=== PATIENT | female | born 1950 | race Caucasian/White ===

== ENCOUNTER 2017-08-17 04:22 | Inpatient (IN) | payer MEDICARE, MEDICAID ==
[~2017-08-17] VITALS: Ht 170.2 cm; Wt 93.4 kg
[~2017-08-17 04:22] MED LIST: ABILIFY20 MG; ALEVE220 MG PO; ASPIRIN EC81 M1 PO; ASPIRIN325 PO; ATORVASTATIN CA20 MG PO; BACTRIM DS TAB1 EACH PO; CELEXA10 MG PO; CLONAZEPAM; CLONAZEPAM 0.50.5 M1 PO; CLONAZEPAM 1 MG1 M1 PO; COMBIVENT RESPIM4 GM IH; EFFER-K 20 MEQ20 ME1 PO; FENTANYL 1100 MCG/HR; FENTANYL 1100 MCG/HR TP; FENTANYL PATCH75 MCG TRANSDERM; FLONASE 0.05%50 MCG NASAL; FOLIC ACID1 MG PO; HYDROCODON-ACE1 EAC8; HYDROCODONE-APA1 TA1 PO; IBUPROFEN 200200 M1 PO; LASIX 20 MG TAB20 MG PO; LEVAQUIN 500 M500 M2 PO; LIDODERM 5%1 PATC1 TRANSDERM; MULTIVITAMINS PO; MULTIVITAMINS1 EAC7; MULTIVITAMINS1 EAC7 PO; NORCO 10-325 T1 EACH PO; NORCO 5-325 TA1 EACH PO; NUCYNTA50 MG PO; OMEPRAZOLE40 MG PO; ONDANSETRON HCL4 M2 PO; OXYBUTYNIN 5 MG5 M2 PO; OXYCODONE HCL 55 MG PO; OXYCODONE HCL15 MG PO; PERCOCET 10-321 EAC1 PO; PERCOCET 10-321 EACH PO; PERCOCET 5-3251 EACH PO; PERCOCET 7.5-31 EACH PO; PERCOCET PO; PROAIR HFA8.5 GM; PROAIR HFA8.5 GM INH; TRINATE TABLET1 TAB PO; VITAMIN B-1100 M1 PO; VITAMIN D1000 UNI1 PO; XANAX 0.5 MG0.5 MG PO; ZANAFLEX4 MG PO; ZANTAC 150MG T150 MG PO; ZOCOR20 MG PO
[2017-08-17 04:25] VITALS: BP 135/63
[2017-08-17 05:32] LABS: ABSOLUTE EOSINOPHILS 0.1 thou/uL (0.0-0.7); ABSOLUTE LYMPHOCYTES 2.1 thou/uL (0.8-5.3); ABSOLUTE MONOCYTES 0.6 thou/uL (0.0-1.2); ABSOLUTE NEUTROPHILS 4.9 thou/uL (1.6-8.1); BASOPHILS 0.4 %; EOSINOPHILS 0.8 %; HEMATOCRIT 34.9 % (37.0-47.0); HEMOGLOBIN 11.8 gm/dL (12.0-15.0); LYMPHOCYTES 27.1 %; MCH 33.3 pg (26.0-34.0); MCHC 33.8 g/dL (28.0-37.0); MCV 98.3 fL (80.0-100.0); MONOCYTES 8.3 %; MPV 7.3 fl. (7.2-11.1); NUCLEATED RBCS 0 /100WBC; PLATELET COUNT* 130 thou/uL (150-400); POLYS 63.4 %; RBC 3.55 mil/uL (4.20-5.00); RDW-CV 18.9 % (10.5-14.5); WBC 7.8 thou/uL (4.0-11.0)
[2017-08-17 06:00] LABS: CALCIUM 8.4 mg/dL (8.5-10.1); CREATININE 0.8 mg/dL (0.6-1.3)
[2017-08-17 06:02] LABS: POTASSIUM 2.1 mmol/L (3.5-5.1)
[2017-08-17 06:03] LABS: ALBUMIN 3.4 g/dL (3.4-5.0); TOTAL BILIRUBIN 0.7 mg/dL (<0.1-1.0); TOTAL PROTEIN 7.4 g/dL (6.4-8.2)
[2017-08-17 08:22] VITALS: BP 124/86
[2017-08-17 08:44] VITALS: BP 126/75
[2017-08-17 11:30] VITALS: BP 135/69
[2017-08-17 13:15] LABS: CALCIUM 7.7 mg/dL (8.5-10.1); CREATININE 1.1 mg/dL (0.6-1.3)
[2017-08-17 13:18] LABS: POTASSIUM 2.6 mmol/L (3.5-5.1)
[2017-08-17 13:56] LABS: URINE BILIRUBIN NEGATIVE (Negative); URINE BLOOD TRACE (Negative); URINE CLARITY CLEAR; URINE COLOR YELLOW; URINE GLUCOSE-RANDOM NEGATIVE (Negative); URINE KETONES NEGATIVE (Negative); URINE NITRITE-REFLEX NEGATIVE (Negative); URINE PROTEIN 2+ (Negative); URINE UROBILINOGEN 0.2 E.U./dl (0.2-1.0)
[2017-08-17 14:01] LABS: URINE LEUKOCYTES-REFLEX 3+ (Negative)
[2017-08-17 14:12] LABS: BACTERIA-REFLEX >30 Many /HPF (None Seen); CRYSTALS None Seen /LPF (None Seen); URINE WBC-REFLEX >25 Many /HPF (0-5)
[2017-08-17 14:13] LABS: CASTS None Seen /LPF (None Seen); MUCUS >6 Heavy strn/LPF (None Seen); SQUAMOUS >10 Many /LPF (0-3)
[2017-08-17 15:30] VITALS: BP 70/39
--- NOTE | 2017-08-17 15:46 | EKG ---
[place] [address] ELECTROCARDIOGRAM REPORT Name: LEAH SAGASTUME Room: [address] ADM IN .R.#: [id number] Admission: 08/17/17 Attend Phys: Rajendra Rinaldi, Discharge: Date of : 52 Report #: [id number] THIS REPORT FOR: //name// [facility] ED Test Date: 2017-08-17 Test Time: 04:36:48 Pat Name: LEAH SAGASTUME Department: Room: [facility] Gender: F Solder Making Supervisor: MARCUS Newman : 1950 Requested By: Reba Parra Order Number: [id number] MD: Eulalio Rankin Measurements Intervals [place] Rate: 92 P: 6 AR: 160 QRS: 56 QRSD: 100 T: 42 QT: 411 QTc: 509 Interpretive Statements Sinus rhythm Low voltage, extremity and precordial leads Prolonged QT interval Compared to ECG 03/03/2017 19:50:58 Low QRS voltage now present Prolonged QT interval now present Sinus tachycardia no longer present Electronically Signed On 08-17-2017 15:46:32 PRINTING PLATE MAKER by Eulalio Rankin [email or web address] <ELECTRONICALLY SIGNED> By: Eulalio Rankin MD, FACC 08/17/17 1546 [id number] [id number] Eulalio Rankin MD, FAC /EPI
[2017-08-17 20:00] VITALS: BP 75/54
[2017-08-18] VITALS (10 sets, daily range): BP systolic 70–125; BP diastolic 39–70
[2017-08-18 00:07] LABS: HEMOGLOBIN 9.7 gm/dL (12.0-15.0); MCH 34.2 pg (26.0-34.0); MCHC 33.4 g/dL (28.0-37.0); MCV 102.2 fL (80.0-100.0); MPV 7.1 fl. (7.2-11.1); RBC 2.84 mil/uL (4.20-5.00); RDW-CV 19.3 % (10.5-14.5); WBC 7.2 thou/uL (4.0-11.0)
[2017-08-18 00:11] LABS: CALCIUM 7.7 mg/dL (8.5-10.1); CREATININE 1.8 mg/dL (0.6-1.3); MAGNESIUM 3.3 mg/dL (1.8-2.4)
[2017-08-18 04:55] LABS: CALCIUM 7.4 mg/dL (8.5-10.1); CREATININE 1.7 mg/dL (0.6-1.3); MAGNESIUM 2.7 mg/dL (1.8-2.4); TOTAL BILIRUBIN 0.7 mg/dL (<0.1-1.0); TOTAL PROTEIN 6.5 g/dL (6.4-8.2)
[2017-08-18 04:56] LABS: HEMATOCRIT 29.8 % (37.0-47.0); HEMOGLOBIN 9.9 gm/dL (12.0-15.0); MCH 33.6 pg (26.0-34.0); MCHC 33.1 g/dL (28.0-37.0); MCV 101.6 fL (80.0-100.0); MPV 6.9 fl. (7.2-11.1); RBC 2.94 mil/uL (4.20-5.00); RDW-CV 19.7 % (10.5-14.5); WBC 8.1 thou/uL (4.0-11.0)
[2017-08-18 05:37] LABS: POTASSIUM 2.8 mmol/L (3.5-5.1)
[2017-08-18 11:41] LABS: HEMATOCRIT 28.8 % (37.0-47.0); HEMOGLOBIN 9.6 gm/dL (12.0-15.0)
[2017-08-18 23:25] LABS: INFLUENZA A ANTIGEN None Detected (None Detect); INFLUENZA B ANTIGEN None Detected (None Detect)
[2017-08-19] VITALS (12 sets, daily range): BP systolic 88–137; BP diastolic 54–79
[2017-08-19 05:09] LABS: HEMATOCRIT 28.5 % (37.0-47.0); HEMOGLOBIN 9.5 gm/dL (12.0-15.0); MCH 34.6 pg (26.0-34.0); MCHC 33.3 g/dL (28.0-37.0); MCV 103.9 fL (80.0-100.0); MPV 7.1 fl. (7.2-11.1); RBC 2.74 mil/uL (4.20-5.00); RDW-CV 20.3 % (10.5-14.5); WBC 9.2 thou/uL (4.0-11.0)
[2017-08-19 05:15] LABS: CALCIUM 7.3 mg/dL (8.5-10.1); CREATININE 0.9 mg/dL (0.6-1.3); MAGNESIUM 2.1 mg/dL (1.8-2.4); POTASSIUM 3.5 mmol/L (3.5-5.1)
[2017-08-20 04:00] VITALS: BP 136/54
[2017-08-20 04:44] LABS: HEMOGLOBIN 9.4 gm/dL (12.0-15.0); MCH 34.4 pg (26.0-34.0); MCHC 33.6 g/dL (28.0-37.0); MCV 102.3 fL (80.0-100.0); MPV 7.4 fl. (7.2-11.1); RBC 2.74 mil/uL (4.20-5.00); WBC 7.7 thou/uL (4.0-11.0)
[2017-08-20 05:13] LABS: ALBUMIN 2.7 g/dL (3.4-5.0); CALCIUM 7.6 mg/dL (8.5-10.1); CREATININE 0.8 mg/dL (0.6-1.3); POTASSIUM 3.3 mmol/L (3.5-5.1); TOTAL BILIRUBIN 0.7 mg/dL (<0.1-1.0); TOTAL PROTEIN 5.9 g/dL (6.4-8.2)
[2017-08-20 08:00] VITALS: BP 111/62
[2017-08-20 16:08] VITALS: BP 116/60
[2017-08-20 20:00] VITALS: BP 142/84
[2017-08-21] VITALS: BP 158/78
[2017-08-21 04:00] VITALS: BP 144/86
[2017-08-21 04:20] LABS: HEMATOCRIT 28.2 % (37.0-47.0); HEMOGLOBIN 9.4 gm/dL (12.0-15.0); MCH 33.8 pg (26.0-34.0); MCHC 33.5 g/dL (28.0-37.0); MCV 100.9 fL (80.0-100.0); MPV 6.9 fl. (7.2-11.1); RBC 2.79 mil/uL (4.20-5.00); RDW-CV 20.3 % (10.5-14.5); WBC 5.7 thou/uL (4.0-11.0)
[2017-08-21 04:28] LABS: CALCIUM 7.7 mg/dL (8.5-10.1); CREATININE 0.7 mg/dL (0.6-1.3); MAGNESIUM 1.4 mg/dL (1.8-2.4); POTASSIUM 3.8 mmol/L (3.5-5.1)
[2017-08-21 08:05] VITALS: BP 147/81
[2017-08-21 11:42] VITALS: BP 143/79
[2017-08-21 15:47] VITALS: BP 111/61
[2017-08-21 20:00] VITALS: BP 137/97
[2017-08-22] VITALS: BP 157/77
[2017-08-22 04:00] VITALS: BP 157/72
[2017-08-22 08:00] VITALS: BP 146/80
[2017-08-22 12:07] VITALS: BP 155/82
[2017-08-22 20:00] VITALS: BP 152/62
[2017-08-23] VITALS (7 sets, daily range): BP systolic 117–143; BP diastolic 58–76
[2017-08-23] MEDS ORDERED: COLACE100 MG PO (10:42)
[2017-08-23] MEDS ORDERED: CIPRO500 MG PO (10:42)
[2017-08-23] MEDS ORDERED: MIRALAX17 GM PO (10:42)
[2017-08-23] MEDS ORDERED: OXYCODONE HCL 55 MG PO (11:35)
[2017-08-23] MEDS ORDERED: PERCOCET PO (11:35)
--- NOTE | 2017-08-25 10:26 | S ---
[place] [address] SURGICAL PATH RPT PROCEDURE Name: LEAH SAGASTUME Room: [address] IN .R.#: [id number] Admission: 08/17/17 Date of : 52 Discharge: 08/23/17 Report #: [id number] Path Case #: [id number] PATHOLOGY REPORT COLLECTION DATE: 08/20/2017 RECEIVED DATE: 08/24/2017 SUBMITTING PHYS: Dr. Rene Steen OTHER PHYS: Dr. Rajendra Rinaldi SPECIMEN(S) RECEIVED: A.Submucosa lesion of the duodenum B.Duodenum bx * * * * * * * * * * * * FINAL DIAGNOSIS: A. Submucosal lesion of the duodenum: - Minute fragment of fat consistent with submucosal lipoma and mild nonspecific active duodenitis with prominence of Jodi's glands, negative for granulomas and dysplasia/adenomatous change. See comment. B. Duodenum biopsy for duodenitis: - Moderate nonspecific active duodenitis, negative for granulomas and dysplasia/adenomatous change. (LISA:liu; 08/25/2017) COMMENT: A. Review of Dr. Steen's EGD procedure report dated 08/20/2017, reveals a 7 mm submucosal lesion in the second portion of the duodenum suspicious for lipoma. (LISA:liu; 08/25/2017) PATHOLOGIST: Tommy Gibson M.D. REPORT ELECTRONICALLY SIGNED BY: Tommy Gibson M.D. DATE/TIME: 08/25/2017 10:25 * * * * * * * * * * * * GROSS PATHOLOGY: A. Received in formalin labeled "Leah Sagastume, submucosal lesion of the duodenum," is a segment of cardenas soft tissue measuring 0.3 x 0.3 x 0.2 cm in maximum dimension. The specimen is submitted entirely in cassette A1. B. The specimen is received in formalin, labeled "Leah aSgastume, duodenum BX for duodenitis," and consists of 3 fragments of cardenas soft tissue measuring between 0.5 x 0.3 x 0.1 cm and 0.3 x 0.2 x 0.1 cm. They are entirely submitted in cassette A1. (SDY; 08/24/2017) [place] [address] SURGICAL PATH RPT PROCEDURE Name: LEAH SAGASTUME Room: [address]#: [id number] Admission: 08/17/17 Date of : 52 Discharge: 08/23/17 Report #: [id number] Path Case #: [id number] CLINICAL HISTORY: Submucosal lesion of the duodenum Duodenitis INITIAL CPT CODE(S): A; 49375 B; 23644 Professional services performed by [facility] at [address] [address] Technical services performed by [facility] at [address] [place] [address], [address], [place] [address]. [facility] [address] [address] PHONE: [phone] DIRECTOR: Tang Oquendo M.D. * * * END OF REPORT * * *
--- NOTE | 2017-08-31 16:26 | CON ---
[address] [address] CONSULTATION Name: TANIKALEAH Esthela Room: [address] IN .R.#: [id number] Admission: 08/17/17 Attend Phys: Rajendra Rinaldi, Discharge: 08/23/17 Date of : 52 Report #: [id number] THIS REPORT FOR: //name// CC: ARACELI physician/PCP Rajendra Rinaldi DATE OF SERVICE: 08/18/2017 ADDENDUM CONSULT NUMBER: [id number] I have personally seen and reviewed labs and imaging studies. The patient with history of EGD and colonoscopy 2 years ago at who presents with abnormal liver enzymes, history of alcoholism, recent fall with fracture of left humerus. The patient found to have heme-positive stool and her hemoglobin dropped from 11 to 9.9. She has history of peptic ulcer disease. We will go ahead and schedule her for an upper endoscopy. Meanwhile, we will obtain records from in reference to her colonoscopy. If her upper endoscopy was negative, we will consider a colonoscopy at that point. Note that the patient has hypokalemia, this should be corrected prior to the procedure. <ELECTRONICALLY SIGNED> By: Rene Steen MD 08/31/17 1626 1336 01Rene Steen MD /nt
--- NOTE | 2017-08-31 16:26 | CON ---
[address] [address] CONSULTATION Name: TANIKALEAH Esthela Room: [address]#: [id number] Admission: 08/17/17 Attend Phys: Rajendra Rinaldi, Discharge: 08/23/17 Date of : 52 Report #: [id number] THIS REPORT FOR: //name// CC: ARACELI physician/PCP Rajendra Rinaldi DICTATED BY: Johana Sánchez [facility] DATE OF SERVICE: 08/18/2017 The patient cannot recall who her PCP is. Please note at the time of this dictation, the patient was seen and physically examined by myself. REASON FOR CONSULTATION: Anemia and Hemoccult positive stool. HISTORY OF PRESENT ILLNESS: This is a 67-year-old female presented to the emergency room after having some left shoulder pain, which had been ongoing for about an hour after she had fallen and landed on her left shoulder while she was in the bathroom. The patient's alcohol level when she came in was 137 and she had been drinking. EMS that she was incontinent on the scene as well. The patient states prior to her admission, she did have what she considered like the GI flu, she had kind of upper respiratory where she had some head congestion, she had a lot of coughing, she had some nausea, vomiting and lot of diarrhea as well during this time period. She did not notice any bright red blood or any black noted stools. The patient states that she had an EGD and colonoscopy done a couple of years ago over at and from what she can recall everything was normal. She states her normal bowel habits go between constipation and diarrhea and will go back and forth. PAST MEDICAL HISTORY: Includes pneumonia, seizure disorder, hypercholesterolemia, history of alcohol abuse and frequent falls. PAST SURGICAL HISTORY: Back surgeries, she has had a hysterectomy, cholecystectomy, she has had her knees replaced times 2, she has had left shoulder surgery times 3, bilateral carpal tunnel, she had a stroke in November 2012, right elbow surgery, and history of rib fractures. ALLERGIES: TRAMADOL, CONTRAST DYE, and DARVOCET. MEDICATIONS FROM HOME: Atorvastatin, aspirin, and hydrocodone. FAMILY HISTORY: Noncontributory. SOCIAL HISTORY: Positive for tobacco use, half to a full pack [place] [address] CONSULTATION Name: LEAH SAGASTUME Room: [address]#: [id number] Admission: 08/17/17 Attend Phys: Rajendra Rinaldi, Discharge: 08/23/17 Date of : 52 Report #: [id number] use, she admits to 4 shots of vodka daily. Denies any recreational drug use. REVIEW OF SYSTEMS: Twelve-point review of systems is essentially negative except what is mentioned in the HPI. PHYSICAL EXAMINATION: VITAL SIGNS: Temperature 36.8, pulse 83, respirations 19, and blood pressure 125/66. HEART: Regular rate and rhythm. LUNGS: Diminished, but clear. ABDOMEN: Soft. Positive bowel sounds in all 4 quadrants with slightly hypoactive bowel sounds noted. EXTREMITIES: Her left upper extremity is in a splint at the present time. LABS: Hemoglobin on admission was 11.8, she is down to 9.6; hematocrit 29.8, white count is 8.1, and platelet is 108. Sodium 141, potassium is 2.8, chloride 101, CO2 of 30, BUN is 5, creatinine is 1.7, GFR is 30, and glucose is 104. Total bilirubin is 0.7, alk phos 319, ALT 50, and AST is 85. IMPRESSION: 1. Acute on chronic anemia. 2. Positive Hemoccult stool. 3. Thrombocytopenia. 4. Elevated LFTs. 5. Hypokalemia. 6. History of alcohol abuse. 7. Left humeral fracture. PLAN: 1. Stat H and H. 2. EGD and colonoscopy possibly on Wednesday with Dr. Steen. 3. Clear liquid diet tomorrow. 4. Obtain records from on her previous EGD and colonoscopies. 5. Ultrasound of her abdomen. 6. B12, folate, ferritin, iron and TIBC still pending. Thank you for allowing us to participate in this patient's care. Please do not hesitate to call with any questions in regard to this consult. <ELECTRONICALLY SIGNED> By: Rene Steen MD 08/31/17 1626 1154 1456Rene Steen MD /nt
--- NOTE | 2017-08-31 16:26 | PROC ---
[address] [address] PROCEDURE REPORT Name: LEAH SAGASTUME Room: [address] IN .#: [id number] Admission: 08/17/17 Attend Phys: Rajendra Rinaldi, Discharge: 08/23/17 Date of : 52 Report #: [id number] THIS REPORT FOR: //name// CC: ARACELI physician/PCP Rajendra Rinaldi DATE OF SERVICE: 08/20/2017 PROCEDURE PERFORMED: EGD with biopsy. INDICATION FOR PROCEDURE: Anemia and history of melanotic stool. MEDICATION GIVEN DURING THIS PROCEDURE: Include propofol administered by nail puller. PHYSICAL EXAMINATION: VITAL SIGNS: Reveals normal vitals. LUNGS: Clear. CARDIOVASCULAR: Regular. ABDOMEN: Large, soft, nontender, nondistended. Bowel sounds are positive. DESCRIPTION OF PROCEDURE: An informed consent was obtained from the patient including the nature, risks, benefits and alternatives described. The patient was placed in the left lateral decubitus position with oximetry, blood pressure and cardiac monitoring. IV sedation was titrated with medication to effect. The Ves[employer] video upper endoscope was then advanced under direct vision into the esophagus, there was grade A distal esophagitis. There was no evidence of esophagitis, rings, webs or strictures. No evidence for Rice's mucosa was noted. The stomach was then entered, insufflated and examined in its entirety and revealed a normal-appearing antrum and body as well as the cardia and fundus on retroflex examination. There was a small hiatal hernia. The pylorus was widely patent, revealing that there was duodenitis of the bulb, which was biopsied. There was also a 7 mm submucosal lesion in the second portion of the duodenum, which was suspicious for lipoma, but this was biopsied. Scope and air were then withdrawn, and the patient was sent to the recovery room in stable condition. Thank you for allowing me to participate in the care of this patient. IMPRESSION: 1. Grade B esophagitis. 2. Small hiatal hernia. 3. Duodenitis of the bulb, status post biopsy. 4. Submucosal lesion in the second portion of the duodenum, [place] [address] PROCEDURE REPORT Name: TANIKALEAH Esthela Room: [address]#: [id number] Admission: 08/17/17 Attend Phys: Rajendra Rinaldi, Discharge: 08/23/17 Date of : 52 Report #: [id number] RECOMMENDATION: Follow up biopsy results. We will have the patient on Protonix 40 mg daily. We will make further recommendation after her biopsy results are available. <ELECTRONICALLY SIGNED> By: Rene Steen MD 08/31/17 1626 1441 [id number] Steen MD /nt
--- NOTE | 2017-09-13 09:42 | CON ---
[address] [address] CONSULTATION Name: TANIKALEAH L Room: [address]#: [id number] Admission: 08/17/17 Attend Phys: Rajendra Rinaldi, Discharge: 08/23/17 Date of : 52 Report #: [id number] THIS REPORT FOR: //name// CC: ARACELI physician/PCP Rajendra Rinaldi DICTATED BY: Shay Loco DO DATE OF SERVICE: 08/17/2017 CHIEF COMPLAINT: Left humerus fracture. HISTORY OF PRESENT ILLNESS: The patient is a 67-year-old female who presented to the emergency department at [facility] after a fall yesterday last night. She admits that she had been drinking alcohol and she sustained a fall. The exact mechanism of fall is unknown. Her daughter was at home at that time who called the EMS due to severe left arm pain. The patient was subsequently brought into the emergency room where x-rays were taken and demonstrated a mildly displaced midshaft left humerus fracture. She denies any head trauma or other injuries. ALLERGIES: TRAMADOL, CONTRAST DYE, and PROPOXYPHENE. PAST MEDICAL HISTORY: Seizure disorder, electrolyte imbalance, alcoholism, and stroke. PAST SURGICAL HISTORY: Noncontributory. FAMILY HISTORY: Unknown. SOCIAL HISTORY: History of alcoholism. Smokes daily. MEDICATIONS: Atorvastatin, aspirin, hydrocodone, multivitamin, furosemide, and [place]. REVIEW OF SYSTEMS: A 12-point review of systems was obtained. The patient is a poor historian and much of the history is difficult to achieve. Review of systems appears to be otherwise negative except for as mentioned in the HPI, though limited due to cooperation. PHYSICAL EXAMINATION: GENERAL: No acute distress, alert, cooperation is somewhat limited. HEENT: Head is atraumatic. Moist mucous membranes. Extraocular movements are intact. NECK: Supple, full range of motion. CARDIOVASCULAR: Normal peripheral [place] [address] CONSULTATION Name: LEAH SAGASTUME Room: [address]#: [id number] Admission: 08/17/17 Attend Phys: Rajendra Rinaldi, Discharge: 08/23/17 Date of : 52 Report #: [id number] LUNGS: Nonlabored respirations. ABDOMEN: Soft, nontender. SKIN: Intact. MUSCULOSKELETAL: The left upper extremity splint is intact. The skin at the edges of the splint is intact as well. There is diminished effort when asked to move the fingers and wrist, although sensation is intact throughout the entire hand. The patient does not make a full fist and does not give a thumbs up, but again sensation is normal. Cooperation does appear to be limited at this time due to pain. X-rays, multiple views of the left humerus demonstrate an oblique or short spiral midshaft humerus fracture that is mildly angulated and displaced. IMPRESSION: Left midshaft humerus fracture. TREATMENT: We would like to obtain a new set of radiographs to better evaluate the alignment of the fracture after the splint has been applied, this will likely be treated nonoperatively as the patient is not a great surgical candidate and the fracture pattern tends to do quite well with conservative care. We will order new x-rays and maintain the splint for now, she will be nonweightbearing of the left upper extremity. If new x-rays appear satisfactory, then the patient should follow up for serial x-rays next week in the outpatient clinic. <ELECTRONICALLY SIGNED> By: Guzman Lee DO 09/13/17 0942 1614 1759Daviprema Lee DO /nt
[2018-02-15] MEDS ORDERED: POTASSIUM20 PO (12:26)
== END 2017-08-23 13:30 | disposition home health service (06) | DRG 562 ==
LOC: M.ERS 04:22 → M.2W 06:07 → M.TBA-ER 06:07 → M.2W 08:20
PROVIDERS: Emergency Medicine; Internal Medicine; Nurse Practitioner Adult Health; ADMIT Family Medicine
PROC: 2W3FX1Z Immobilization of Left Hand using Splint (ICD-10-PCS; principal; 2017-08-17)
PROC: 0DB98ZX Excision of Duodenum, Via Natural or Artificial Opening Endoscopic, Diagnostic (ICD-10-PCS; 2017-08-20)
DX: S42.302A Unspecified fracture of shaft of humerus, left arm, initial encounter for closed fracture (principal); N17.0 Acute kidney failure with tubular necrosis; G92 Toxic encephalopathy; J96.91 Respiratory failure, unspecified with hypoxia; N39.0 Urinary tract infection, site not specified; E46 Unspecified protein-calorie malnutrition; J90 Pleural effusion, not elsewhere classified; I12.9 Hypertensive chronic kidney disease with stage 1 through stage 4 chronic kidney disease, or unspecified chronic kidney disease; N18.2 Chronic kidney disease, stage 2 (mild); F17.210 Nicotine dependence, cigarettes, uncomplicated; G40.909 Epilepsy, unspecified, not intractable, without status epilepticus; E78.00 Pure hypercholesterolemia, unspecified; D64.9 Anemia, unspecified; D69.6 Thrombocytopenia, unspecified; E87.6 Hypokalemia; K20.9 Esophagitis, unspecified; K44.9 Diaphragmatic hernia without obstruction or gangrene; K29.80 Duodenitis without bleeding; Z96.659 Presence of unspecified artificial knee joint; E83.42 Hypomagnesemia; J06.9 Acute upper respiratory infection, unspecified; F10.129 Alcohol abuse with intoxication, unspecified; K21.9 Gastro-esophageal reflux disease without esophagitis; W18.39XA Other fall on same level, initial encounter; I95.9 Hypotension, unspecified; Z68.32 Body mass index [BMI] 32.0-32.9, adult; Z90.710 Acquired absence of both cervix and uterus; Z79.899 Other long term (current) drug therapy; Z88.8 Allergy status to other drugs, medicaments and biological substances; Z86.73 Personal history of transient ischemic attack (TIA), and cerebral infarction without residual deficits; Z91.041 Radiographic dye allergy status; Z87.01 Personal history of pneumonia (recurrent); Z90.49 Acquired absence of other specified parts of digestive tract; Y93.89 Activity, other specified; Y92.098 Other place in other non-institutional residence as the place of occurrence of the external cause; Y99.8 Other external cause status

== ENCOUNTER 2017-08-25 16:12 | Emergency (ER) | payer OTHER, MEDICAID ==
[~2017-08-25] VITALS: Ht 162.6 cm; Wt 83.9 kg
[~2017-08-25 16:12] MED LIST changes: +CIPRO500 MG PO; +COLACE100 MG PO; +MIRALAX17 GM PO
[2017-08-25 17:13] LABS: HEMATOCRIT 31.8 % (37.0-47.0); HEMOGLOBIN 10.6 gm/dL (12.0-15.0); MCH 33.2 pg (26.0-34.0); MCHC 33.5 g/dL (28.0-37.0); MCV 99.2 fL (80.0-100.0); MPV 6.7 fl. (7.2-11.1); RBC 3.2 mil/uL (4.20-5.00)
[2017-08-25 17:19] LABS: CALCIUM 8.3 mg/dL (8.5-10.1); CREATININE 0.9 mg/dL (0.6-1.3)
[2017-08-25 17:25] LABS: POTASSIUM 2.6 mmol/L (3.5-5.1)
[2017-08-25] MEDS ORDERED: K-DUR 20 MEQ T20 MEQ PO (19:33)
[2017-08-25] MEDS ORDERED: KEFLEX500 M1 PO (19:33)
[2017-08-25 19:51] VITALS: BP 120/67
--- NOTE | 2017-08-26 16:26 | EKG ---
[place] [address] ELECTROCARDIOGRAM REPORT Name: TANIKALEAH Esthela Room: [facility]#: [id number] Admission: 08/25/17 Attend Phys: Discharge: 08/25/17 Date of : 52 Report #: [id number] THIS REPORT FOR: //name// [facility] ED Test Date: 2017-08-25 Test Time: 17:36:59 Pat Name: LEAH SAGASTUME Department: Room: Gender: F Staff Development Nurse: Paty CARLSON : 1950 Requested By: Umesh Castillo Order Number: [id number] MD: Fidel Navarrete Measurements Intervals [place] Rate: 94 P: 4 [place]: 164 QRS: 27 QRSD: 87 T: 24 QT: 394 QTc: 493 Interpretive Statements Sinus rhythm Low voltage, precordial leads Borderline prolonged QT interval Compared to ECG 08/17/2017 04:36:48 No significant changes Electronically Signed On 08-26-2017 16:26:21 CHEMISTRY TECHNICIAN by Fidel Navarrete [email or web address] <ELECTRONICALLY SIGNED> By: Fidel Navarrete MD, [facility] 08/26/17 1626 1736 173 Fidel Navarrete MD, FACC /EPI
[2018-02-15] MEDS ORDERED: POTASSIUM20 PO (12:26)
== END 2017-08-25 19:53 | disposition home or self-care (01) ==
LOC: M.ERS 16:12
PROVIDERS: Emergency Medicine Emergency Medical Services
DX: M79.602 Pain in left arm (principal); E87.6 Hypokalemia; R29.6 Repeated falls; F17.210 Nicotine dependence, cigarettes, uncomplicated; F10.99 Alcohol use, unspecified with unspecified alcohol-induced disorder; Z86.73 Personal history of transient ischemic attack (TIA), and cerebral infarction without residual deficits; Z87.01 Personal history of pneumonia (recurrent); Z96.659 Presence of unspecified artificial knee joint; Z98.890 Other specified postprocedural states; Z88.5 Allergy status to narcotic agent; Z91.041 Radiographic dye allergy status; Z88.8 Allergy status to other drugs, medicaments and biological substances

== ENCOUNTER 2017-09-01 10:44 | Inpatient (IN) | payer OTHER, MEDICAID ==
[~2017-09-01] VITALS: Ht 162.6 cm; Wt 72.6 kg
[~2017-09-01 10:44] MED LIST changes: +K-DUR 20 MEQ T20 MEQ PO; +KEFLEX500 M1 PO
[2017-09-01 10:46] VITALS: BP 105/77
--- NOTE | 2017-09-01 11:24 | NUR ---
PT STATES SHE CAME TO ER TODAY BECAUSE HER ORTHO MD IS LOCATED HERE IN THIS BUILDING, THAT HER ORTHO IS GONE FOR THE WEEK AND SHE NEEDS HER SHOULDER OPERATATED ON. PT STATES SHE WAS HOPING TO COME HERE AND BE OPERATED ON PT STATES SHE IS OUT OF PAIN MEDS AT HOME AND THAT THE MEDS PO GIVEN HERE WILL NOT HELP HER AT ALL.
[2017-09-01 14:28] LABS: ABSOLUTE NEUTROPHILS 5.5 thou/uL (1.6-8.1)
[2017-09-01 14:33] LABS: ABSOLUTE BASOPHILS 0.1 thou/uL (0.0-0.2); ABSOLUTE EOSINOPHILS 0.1 thou/uL (0.0-0.7); ABSOLUTE LYMPHOCYTES 2.4 thou/uL (0.8-5.3); ABSOLUTE MONOCYTES 1.1 thou/uL (0.0-1.2); BASOPHILS 0.8 %; EOSINOPHILS 0.6 %; HEMATOCRIT 40.1 % (37.0-47.0); HEMOGLOBIN 13.3 gm/dL (12.0-15.0); LYMPHOCYTES 26.2 %; MCH 32.7 pg (26.0-34.0); MCHC 33.1 g/dL (28.0-37.0); MCV 98.8 fL (80.0-100.0); MONOCYTES 11.9 %; MPV 7.6 fl. (7.2-11.1); NUCLEATED RBCS 0 /100WBC; PLATELET COUNT* 400 thou/uL (150-400); POLYS 60.5 %; RBC 4.06 mil/uL (4.20-5.00); RDW-CV 19.5 % (10.5-14.5); WBC 9.1 thou/uL (4.0-11.0)
[2017-09-01 14:38] LABS: CALCIUM 8.9 mg/dL (8.5-10.1); CREATININE 0.8 mg/dL (0.6-1.3)
[2017-09-01 14:41] LABS: POTASSIUM 2.5 mmol/L (3.5-5.1)
[2017-09-01 14:43] LABS: ALBUMIN 3.1 g/dL (3.4-5.0); TOTAL BILIRUBIN 0.7 mg/dL (<0.1-1.0); TOTAL PROTEIN 7.7 g/dL (6.4-8.2)
[2017-09-01 15:25] VITALS: BP 105/77
--- NOTE | 2017-09-01 19:42 | NUR ---
PATIENT ARRIVED ON UNIT FROM PACU AT 1830. COMPLETED ADMISSION ASSESSMENT AND HISTORY. IV CLEAN, FLUIDS INFUSING. PAIN WELL CONTROLLED WITH PAIN MEDS. LEFT SHOULDER/ARM IN SWING. REFUSED SCD'S. UP AD SHEYLA. COMPLETED HOURLY ROUNDING. CALL LIGHT WITHIN REACH. WILL CONTINUE TO MONITOR.
--- NOTE | 2017-09-01 19:57 | NUR ---
PATIENT HAS POTASSIUM OF 2.5. NURSE REITERATED WITH DOCTOR THAT IT IS IN FACT OK TO PUT THIS PATIENT ON JOINT AND SPINE WITHOUT BEING HOOKED UP TO A HEART MONITOR. DOCTORS ARE COMFORTABLE WITH PLACING PATIENT ON UNIT.
[2017-09-01 20:00] VITALS: BP 103/70
[2017-09-01 21:07] LABS: CHOLESTEROL 127 mg/dL (<200); HDL CHOLESTEROL 39 mg/dL (>40); LDL CHOLESTEROL 69 mg/dL (<100); TC:HDL 3.3 Ratio (Not establshd); TRIGLYCERIDE 95 mg/dL (<150); VLDL 19 mg/dL (<40)
[2017-09-01 21:08] LABS: SERUM ASSESSMENT CLEAR
[2017-09-01 23:45] VITALS: BP 116/69
[2017-09-02 03:42] LABS: HEMATOCRIT 35.4 % (37.0-47.0); HEMOGLOBIN 11.4 gm/dL (12.0-15.0); MCH 31.9 pg (26.0-34.0); MCHC 32.2 g/dL (28.0-37.0); MCV 99.3 fL (80.0-100.0); MPV 7.7 fl. (7.2-11.1); RBC 3.57 mil/uL (4.20-5.00); RDW-CV 19.5 % (10.5-14.5); WBC 8.5 thou/uL (4.0-11.0)
[2017-09-02 03:51] LABS: CALCIUM 8.3 mg/dL (8.5-10.1); CREATININE 0.8 mg/dL (0.6-1.3); POTASSIUM 3.2 mmol/L (3.5-5.1)
--- NOTE | 2017-09-02 05:29 | NUR ---
ASSUMED CARE OF PATIENT AT APPROXIMATELY 2000. PATIENT IN EXCRUTIATING PAIN DURING MOST OF OVERNIGHT SHIFT. PATIENT A/O X 4 AND VSS. PATIENT IS NOT ABLE TO HAVE SURGERY UNTIL WEDNESDAY (09/03/17) AND IS WONDERING HOW SHE WILL BE ABLE TO SURVIVE THE PAIN OF THE FRACTURED HUMERUS. PAIN MEDICATIONS ALTERNATED TO ATTEMPT TO CATCH UP WITH PATIENT'S PAIN. PATIENT RELAYS THAT FOR EACH PAIN REASSESSMENT, HER PAIN REMAINS IN THE 9'S/10 ON PAIN SCALE. PATIENT DENIES N/V/ AND NO MEDICATIONS HAVE BEEN GIVEN SUCH. PAIN MEDICATIONS HAVE BEEN ADMINISTERED X 5 DURING PRINTED CIRCUIT BOARD PANELS DEBURRER FOR PATIENT'S UNTOUCHED PAIN. OF THIS NOTE, PATIENT'S PAIN CONTINUES TO BE UNCONTROLLED. HOURLY ROUNDOMG PERFORMED AND NURSING TO FOLLOW-UP NECESSARY. ALL FALL PRECAUTIONS IN PLACE, INCLUDING CALL LIGHT WITHIN REACH. WILL CONTINUE TO MONITOR CLOSELY.
[2017-09-02 08:10] VITALS: BP 198/61
--- NOTE | 2017-09-02 16:24 | NUR ---
PATIENT REMAINED ALERT AND ORIENTED X'S 4. VITAL SIGNS AND SPO2 STABLE. IV CLEAN, FLUIDS INFUSING. ADMINISTERED K+ AND MAG REPLACEMENT. PAIN NOT WELL CONTROLLED. GAVE PAIN MEDS EVERY 2 HOURS THROUGHOUT SHIFT, PATIENT NEVER HAD PAIN BELOW A 6. TOLERATED DIET, NO NAUSEA AND VOMITING. LEFT ARM DRESSING IN PLACE. SHE WILL BE NPO AT MIDNIGHT. VOIDED AND PASSED BM WITHOUT ISSUE. COMPLETED HOURLY ROUNDING. CALL LIGHT WITHIN REACH. WILL CONTINUE TO MONITOR.
--- NOTE | 2017-09-02 17:38 | NUR ---
SPOKE WITH PT.AND GENARO. [facility] CAN HELP PT.AT HOME NEEDED. PT.WAS TO HAVE SURGERY YESTERDAY BUT K WAS TOO LOW. HOPEFULLY SHE CAN HAVE SURGERY TOMORROW. SHE HAS HAD PROBLEMS WITH PAIN CONTROL TODAY. RATES PAIN AT LEAST 6/10. PT.WAS INDEPENDENT AT HOME BEFORE FRACTURING HER HUMERUS. IN CURRENTLY ON SERVICE WITH [facility] HOME HH. GARCIA WILL FOLLOW.
[2017-09-03 00:05] VITALS: BP 91/58
--- NOTE | 2017-09-03 04:04 | NUR ---
PATIENT ORIENTED X4 ON HOURLY ROUNDS. MEDICATED FOR PAIN APPROX EVERY 2-3 HOURS WITH PARTIAL RESULTS REPORTED. DRESSING INTACT TO LEFT ARM. VITALS STABLE ON ROOM AIR. WILL CONTINUE TO MONITOR.
[2017-09-03 04:10] LABS: GLYCOHEMOGLOBIN (HGB A1C) 4.5 % (4.8-5.6)
[2017-09-03 07:25] LABS: ABSOLUTE EOSINOPHILS 0.2 thou/uL (0.0-0.7); ABSOLUTE LYMPHOCYTES 1.5 thou/uL (0.8-5.3); ABSOLUTE MONOCYTES 0.6 thou/uL (0.0-1.2); ABSOLUTE NEUTROPHILS 3.6 thou/uL (1.6-8.1); BASOPHILS 0.4 %; EOSINOPHILS 3.4 %; HEMATOCRIT 35.4 % (37.0-47.0); HEMOGLOBIN 11.4 gm/dL (12.0-15.0); LYMPHOCYTES 25.1 %; MCH 32.2 pg (26.0-34.0); MCHC 32.3 g/dL (28.0-37.0); MCV 99.7 fL (80.0-100.0); MPV 7.9 fl. (7.2-11.1); NUCLEATED RBCS 0 /100WBC; PLATELET COUNT* 300 thou/uL (150-400); POLYS 61.1 %; RBC 3.55 mil/uL (4.20-5.00); RDW-CV 18.8 % (10.5-14.5); WBC 5.9 thou/uL (4.0-11.0)
[2017-09-03 07:30] LABS: CALCIUM 8.6 mg/dL (8.5-10.1); CREATININE 0.7 mg/dL (0.6-1.3); POTASSIUM 4.2 mmol/L (3.5-5.1)
[2017-09-03 08:30] VITALS: BP 121/78
[2017-09-03 13:17] VITALS: BP 91/58
[2017-09-03 13:34] VITALS: BP 121/78
--- NOTE | 2017-09-03 17:41 | NUR ---
PATIENT REMAINED ALERT AND ORIENTED X'S 4. VITAL SIGNS AND SPO2 STABLE. IV CLEAN, FLUIDS INFUSING. ARRIVED BACK ON UNIT FROM PACU AT 1600. PAIN NOT CONTROLLED AT ALL. PATIENT WAS SUPPOSED TO DC TONIGHT IF SHE WAS DOING WELL AFTER SURGERY. PATIENT WANTED IV MEDS, NURSE EXPLAINED TO PATIENT IF SHE WANTED TO LEAVE TONIGHT SHE COULD NOT HAVE IV MEDS, PATIENT AGREED TO PO MEDS. VOIDED WITHOUT ISSUE SINCE SURGERY. WILL CONTINUE TO MONITOR. IF PAIN SUBSIDES TO RESONABLE LEVEL PATIENT WILL STILL LEAVE TONIGHT. COMPLETED HOURLY ROUNDING, CALL LIGHT WITHIN REACH.
[2017-09-03 20:05] VITALS: BP 93/58
[2017-09-04 00:36] VITALS: BP 93/50
[2017-09-04 04:13] VITALS: BP 112/75
[2017-09-04 04:27] LABS: ABSOLUTE EOSINOPHILS 0.2 thou/uL (0.0-0.7); ABSOLUTE MONOCYTES 0.7 thou/uL (0.0-1.2); ABSOLUTE NEUTROPHILS 2.7 thou/uL (1.6-8.1); BASOPHILS 0.8 %; EOSINOPHILS 3.2 %; HEMATOCRIT 35.2 % (37.0-47.0); HEMOGLOBIN 11.5 gm/dL (12.0-15.0); MCH 32.8 pg (26.0-34.0); MCHC 32.6 g/dL (28.0-37.0); MCV 100.4 fL (80.0-100.0); MONOCYTES 12.1 %; MPV 7.7 fl. (7.2-11.1); NUCLEATED RBCS 0 /100WBC; PLATELET COUNT* 290 thou/uL (150-400); POLYS 47.9 %; RBC 3.51 mil/uL (4.20-5.00); RDW-CV 18.8 % (10.5-14.5); WBC 5.6 thou/uL (4.0-11.0)
[2017-09-04 04:35] LABS: CALCIUM 8.6 mg/dL (8.5-10.1); CREATININE 0.9 mg/dL (0.6-1.3); POTASSIUM 4.8 mmol/L (3.5-5.1)
--- NOTE | 2017-09-04 05:47 | NUR ---
PATIENT ALERT AND ORIENTED. VITALS STABLE. RA. PATIENT REMOVED FINGER PROBE FOR CONTINUOUS PULSE OX AND DID NOT WANT IT RECONNECTED. PAIN CONTROL ISSUES AT THE START OF SHIFT. ALTERNATING PO AND IV PAIN MEDICATION. UP SBA. LUE SPLINT AND ACEWRAP IN PLACE. LEFT HAND EDEMA NOTED. PULSE PALPABLE AND ABLE TO MOVE FINGERS. LEFT ARM ELEVATED ON PILLOW. HOURLY ROUNDS. NURSING WILL CONTINUE TO MONITOR.
[2017-09-04 08:19] VITALS: BP 115/72
--- NOTE | 2017-09-04 10:32 | NUR ---
Pt discharging to home today. Pt declined needing HH. Family will provide dc transportation.
[2017-09-04 10:51] VITALS: BP 115/72
[2017-09-04] MEDS ORDERED: PERCOCET 5-3251 EACH PO (11:12)
--- NOTE | 2017-09-04 11:44 | NUR ---
PATIENT DISCHARGED HOME INSTRUCTIONS GIVEN.
--- NOTE | 2017-09-04 12:17 | OP ---
[address] [address] OPERATIVE REPORT Name: TANIKALEAH Esthela Room: [address]#: [id number] Admission: 09/01/17 Attend Phys: Rodríguez Villa Discharge: 09/04/17 Date of : 52 Report #: [id number] THIS REPORT FOR: //name// CC: Thelma Butt DATE OF SERVICE: 09/03/2017 PREOPERATIVE DIAGNOSIS: Comminuted displaced left midshaft humerus fracture. POSTOPERATIVE DIAGNOSIS: Comminuted displaced left midshaft humerus fracture. PROCEDURE PERFORMED: Closed reduction of left midshaft humerus fracture under anesthesia. SURGEON: Morgan Pozo DO. BUSINESS INTELLIGENCE REPORTING ANALYST: Brendon Soria DO ANESTHESIA: General with mask ventilation. ESTIMATED BLOOD LOSS: None. DRAINS: None. SPECIMENS: None. COMPLICATIONS: None. CONDITION: Stable to PACU and then transferred back to the floor. INDICATIONS: This is a 67-year-old female who sustained a midshaft left humerus fracture on 08/17/2017 when she sustained a ground level fall. She has been treated in a coaptation splint and then was transferred to [facility] a couple of weeks after the incident. She has continued to have pain with this and is using significant amounts of narcotics. She has returned to the ER on several different visits and was therefore readmitted to the hospital. On this most previous readmission, it was found that the left humerus fracture had displaced out of parameters of what would be acceptable. It was recommended that the patient undergo repeat closed reduction. However, she was not able to do this in the ER or on the floor due to a low potassium level. She was given potassium replacement until she was stable per anesthesia to come to the operating room for a closed reduction. She was informed of the risks and benefits of undergoing anesthesia for this closed reduction procedure and she agreed [place] [address] OPERATIVE REPORT Name: LEAH SAGASTUME Room: [address]#: [id number] Admission: 09/01/17 Attend Phys: Rodríguez Villa Discharge: 09/04/17 Date of : 52 Report #: [id number] DESCRIPTION OF PROCEDURE: The patient was spoken within the preoperative area and discussed in detail the procedure that was elected to be performed. Once again, we repeated the risks and benefits of the procedure and she agreed. The patient was taken back to the OR suite and she was left on her bed. She was given anesthesia per the anesthesia team and when she had good conscious sedation and good ventilation with the mask, we took down the previous coaptation splint and brought in C-arm to view the alignment. The patient had an anterior angulation of the left midshaft humerus and we underwent a closed reduction under anesthesia. After a closed reduction was performed, the alignment had improved. The patient was then placed in a coaptation splint with a stabilizing posterior slab. Repeat x-rays were done once the splint was in place and acceptable angulation was noted. The patient was then taken out of the anesthesia per the anesthesia team and will be transferred back to the floor where she will be treated medically until stable for discharge. The patient will follow up in 1 week for reevaluation and x-rays. At that time if she continues to displace any further out of this coaptation splint, we will recommend a left humeral shaft nail. The patient will see us in 1 week for reevaluation. <ELECTRONICALLY SIGNED> By: Brendon Soria DO 09/04/17 1217 1602 [id number] eduardo Soria DO /nt
[2018-02-15] MEDS ORDERED: POTASSIUM20 PO (12:26)
== END 2017-09-04 11:51 | disposition home or self-care (01) | DRG 543 ==
LOC: M.ERS 10:44 → M.TBA-ER 14:46 → M.ORTHSURG 14:46
PROVIDERS: Family Medicine; Internal Medicine; ADMIT Internal Medicine
PROC: 0PSGXZZ Reposition Left Humeral Shaft, External Approach (ICD-10-PCS; principal; 2017-09-03)
DX: M80.022A Age-related osteoporosis with current pathological fracture, left humerus, initial encounter for fracture (principal); E44.0 Moderate protein-calorie malnutrition; W18.39XA Other fall on same level, initial encounter; Z96.659 Presence of unspecified artificial knee joint; F17.210 Nicotine dependence, cigarettes, uncomplicated; E87.5 Hyperkalemia; E87.6 Hypokalemia; E83.51 Hypocalcemia; Z28.21 Immunization not carried out because of patient refusal; Y93.89 Activity, other specified; Z90.710 Acquired absence of both cervix and uterus; Z90.49 Acquired absence of other specified parts of digestive tract; Z86.73 Personal history of transient ischemic attack (TIA), and cerebral infarction without residual deficits; Z87.01 Personal history of pneumonia (recurrent); Z79.899 Other long term (current) drug therapy; Z79.82 Long term (current) use of aspirin; Z88.8 Allergy status to other drugs, medicaments and biological substances; Z88.6 Allergy status to analgesic agent; Z91.041 Radiographic dye allergy status; Y92.098 Other place in other non-institutional residence as the place of occurrence of the external cause; Y99.8 Other external cause status

== ENCOUNTER 2017-09-09 18:20 | Emergency (ER) | payer OTHER, MEDICAID ==
[~2017-09-09] VITALS: Ht 170.2 cm; Wt 74.8 kg
[2017-09-09 19:07] VITALS: BP 108/63
--- NOTE | 2017-09-10 14:41 | EKG ---
[place] [address] ELECTROCARDIOGRAM REPORT Name: LEAH SAGASTUME Room: [facility]#: [id number] Admission: 09/09/17 Attend Phys: Discharge: 09/09/17 Date of : 52 Report #: [id number] THIS REPORT FOR: //name// [facility] ED Test Date: 2017-09-09 Test Time: 18:21:27 Pat Name: LEAH SAGASTUME Department: Room: Gender: F Manager Data Warehousing: : 1950 Requested By: Marianne aH Order Number: [id number] MD: Eulalio Rankin Measurements Intervals [place] Rate: 106 P: 47 [place]: 171 QRS: 124 QRSD: 96 T: 22 QT: 389 QTc: 517 Interpretive Statements Sinus tachycardia Low voltage, extremity and precordial leads Abnormal R-wave progression, late transition Minimal ST depression, anterolateral leads Prolonged QT interval Compared to ECG 08/25/2017 17:36:59 ST (T wave) deviation now present Sinus rhythm no longer present Electronically Signed On 09-10-2017 14:41:06 TAXONOMY TEACHER by Eulalio Rankin [email or web address] <ELECTRONICALLY SIGNED> By: Eulalio Rankin MD, FACC 09/10/17 [phone] Eulalio Rankin MD, [facility] /EPI
[2018-02-15] MEDS ORDERED: POTASSIUM20 PO (12:26)
== END 2017-09-09 19:08 | disposition home or self-care (01) ==
LOC: M.ERS 18:20
DX: M79.602 Pain in left arm (principal); G40.909 Epilepsy, unspecified, not intractable, without status epilepticus; F17.210 Nicotine dependence, cigarettes, uncomplicated; F10.99 Alcohol use, unspecified with unspecified alcohol-induced disorder; Z96.659 Presence of unspecified artificial knee joint; Z86.73 Personal history of transient ischemic attack (TIA), and cerebral infarction without residual deficits; Z87.01 Personal history of pneumonia (recurrent); Z90.710 Acquired absence of both cervix and uterus; Z91.81 History of falling; Z98.890 Other specified postprocedural states; Z88.5 Allergy status to narcotic agent; Z91.041 Radiographic dye allergy status; Z88.8 Allergy status to other drugs, medicaments and biological substances

== ENCOUNTER 2017-09-28 02:00 | Emergency (ER) | payer OTHER, MEDICAID ==
[~2017-09-28] VITALS: Ht 170.2 cm; Wt 74.8 kg
[2017-09-28 03:17] LABS: HEMOGLOBIN 14.2 gm/dL (12.0-15.0); MCH 31.4 pg (26.0-34.0); NUCLEATED RBCS 0 /100WBC; PLATELET COUNT* 340 thou/uL (150-400)
[2017-09-28 03:22] LABS: ABSOLUTE BASOPHILS 0.1 thou/uL (0.0-0.2); ABSOLUTE EOSINOPHILS 0.2 thou/uL (0.0-0.7); ABSOLUTE LYMPHOCYTES 3.3 thou/uL (0.8-5.3); ABSOLUTE MONOCYTES 0.8 thou/uL (0.0-1.2); ABSOLUTE NEUTROPHILS 5.1 thou/uL (1.6-8.1); BASOPHILS 0.6 %; HEMATOCRIT 42.7 % (37.0-47.0); LYMPHOCYTES 35.1 %; MCHC 33.2 g/dL (28.0-37.0); MCV 94.7 fL (80.0-100.0); MPV 8.1 fl. (7.2-11.1); POLYS 54.3 %; RBC 4.51 mil/uL (4.20-5.00); RDW-CV 17.1 % (10.5-14.5); WBC 9.5 thou/uL (4.0-11.0)
[2017-09-28 03:23] LABS: CALCIUM 9.1 mg/dL (8.5-10.1); POTASSIUM 3.2 mmol/L (3.5-5.1)
[2017-09-28 03:28] LABS: ALBUMIN 3.3 g/dL (3.4-5.0); TOTAL BILIRUBIN 0.1 mg/dL (<0.1-1.0); TOTAL PROTEIN 7.7 g/dL (6.4-8.2)
[2017-09-28] MEDS ORDERED: HYDROCODON-ACE1 EAC7 PO (04:26)
[2017-09-28] MEDS ORDERED: IBUPROFEN 800800 MG PO (04:26)
[2017-09-28 05:31] VITALS: BP 104/73
--- NOTE | 2017-09-28 13:45 | EKG ---
[place] [address] ELECTROCARDIOGRAM REPORT Name: LEAH SAGASTUME Room: [facility]#: [id number] Admission: 09/28/17 Attend Phys: Discharge: 09/28/17 Date of : 52 Report #: [id number] THIS REPORT FOR: //name// [facility] ED Test Date: 2017-09-28 Test Time: 02:09:55 Pat Name: LEAH SAGASTUME Department: Room: Gender: F Insole T[employer] Stitcher [place]: STUDENT : 1950 Requested By: Yvrose Velasquez Order Number: [id number] Reading MD: Khurram Mueller Measurements Intervals [place] Rate: 99 P: 29 TN: 176 QRS: -37 QRSD: 88 T: 29 QT: 357 QTc: 459 Interpretive Statements Sinus rhythm Left axis deviation Probable anterolateral infarct, old Baseline wander in lead(s) V2 Compared to ECG 09/09/2017 18:21:27 Left-axis deviation now present Myocardial infarct finding now present Sinus tachycardia no longer present ST (T wave) deviation no longer present Prolonged QT interval no longer present Electronically Signed On 09-28-2017 13:45:22 PATIENT SAFETY MANAGER by Khurram Mueller [email or web address] <ELECTRONICALLY SIGNED> By: Khurram Mueller MD, FACC 09/28/17 1345 0209 0209 Khurram Mueller MD, FAC /EPI
[2018-02-15] MEDS ORDERED: POTASSIUM20 PO (12:26)
== END 2017-09-28 05:31 | disposition home or self-care (01) ==
LOC: M.ERS 02:00
PROVIDERS: Personal Emergency Response Attendant
DX: M54.9 Dorsalgia, unspecified (principal); M25.512 Pain in left shoulder; R07.89 Other chest pain; S42.35 Comminuted fracture of shaft of humerus; F17.210 Nicotine dependence, cigarettes, uncomplicated; Z91.040 Latex allergy status; Z88.5 Allergy status to narcotic agent; Z88.8 Allergy status to other drugs, medicaments and biological substances; Z90.49 Acquired absence of other specified parts of digestive tract; Z96.659 Presence of unspecified artificial knee joint; Z86.73 Personal history of transient ischemic attack (TIA), and cerebral infarction without residual deficits; X58.XXXS Exposure to other specified factors, sequela

== ENCOUNTER 2017-09-30 01:35 | Emergency (ER) | payer OTHER, MEDICAID ==
[~2017-09-30] VITALS: Ht 170.2 cm; Wt 74.8 kg
[~2017-09-30 01:35] MED LIST changes: +HYDROCODON-ACE1 EAC7 PO; +IBUPROFEN 800800 MG PO
[2017-09-30 02:58] LABS: ABSOLUTE BASOPHILS 0.1 thou/uL (0.0-0.2); ABSOLUTE EOSINOPHILS 0.1 thou/uL (0.0-0.7); ABSOLUTE LYMPHOCYTES 3.4 thou/uL (0.8-5.3); ABSOLUTE MONOCYTES 0.5 thou/uL (0.0-1.2); ABSOLUTE NEUTROPHILS 5.5 thou/uL (1.6-8.1); BASOPHILS 0.6 %; EOSINOPHILS 1.3 %; HEMATOCRIT 41.3 % (37.0-47.0); HEMOGLOBIN 13.6 gm/dL (12.0-15.0); LYMPHOCYTES 35.8 %; MCH 31.3 pg (26.0-34.0); MCHC 32.9 g/dL (28.0-37.0); MCV 95.2 fL (80.0-100.0); MONOCYTES 5.3 %; MPV 7.8 fl. (7.2-11.1); NUCLEATED RBCS 0 /100WBC; RBC 4.33 mil/uL (4.20-5.00); RDW-CV 16.9 % (10.5-14.5); WBC 9.6 thou/uL (4.0-11.0)
[2017-09-30 03:07] LABS: PLATELET COUNT* 256 thou/uL (150-400)
[2017-09-30 03:21] LABS: CALCIUM 8.8 mg/dL (8.5-10.1); POTASSIUM 3.6 mmol/L (3.5-5.1)
[2017-09-30 03:26] LABS: TOTAL BILIRUBIN 0.1 mg/dL (<0.1-1.0); TOTAL PROTEIN 7.3 g/dL (6.4-8.2)
[2017-09-30 13:59] VITALS: BP 133/83
[2018-02-15] MEDS ORDERED: POTASSIUM20 PO (12:26)
== END 2017-09-30 14:01 | disposition home or self-care (01) ==
LOC: M.ERS 01:35
PROVIDERS: Family Medicine
DX: M79.602 Pain in left arm (principal); F10.129 Alcohol abuse with intoxication, unspecified; N80.9 Endometriosis, unspecified; F17.210 Nicotine dependence, cigarettes, uncomplicated; Z86.73 Personal history of transient ischemic attack (TIA), and cerebral infarction without residual deficits; Z88.6 Allergy status to analgesic agent; Z91.041 Radiographic dye allergy status

== ENCOUNTER 2017-12-09 00:28 | Emergency (ER) | payer OTHER ==
[~2017-12-09] VITALS: Ht 170.2 cm; Wt 91.2 kg
[2017-12-09 00:44] LABS: ABSOLUTE BASOPHILS 0.1 thou/uL (0.0-0.2); ABSOLUTE EOSINOPHILS 0.2 thou/uL (0.0-0.7); ABSOLUTE LYMPHOCYTES 3.8 thou/uL (0.8-5.3); ABSOLUTE MONOCYTES 0.7 thou/uL (0.0-1.2); ABSOLUTE NEUTROPHILS 3.7 thou/uL (1.6-8.1); BASOPHILS 1.4 %; EOSINOPHILS 2.2 %; HEMATOCRIT 40.5 % (37.0-47.0); HEMOGLOBIN 13.6 gm/dL (12.0-15.0); LYMPHOCYTES 44.8 %; MCH 30.3 pg (26.0-34.0); MCHC 33.5 g/dL (28.0-37.0); MCV 90.5 fL (80.0-100.0); MONOCYTES 8.2 %; MPV 7.1 fl. (7.2-11.1); NUCLEATED RBCS 0 /100WBC; PLATELET COUNT* 302 thou/uL (150-400); POLYS 43.4 %; RBC 4.48 mil/uL (4.20-5.00); RDW-CV 17.9 % (10.5-14.5); WBC 8.5 thou/uL (4.0-11.0)
[2017-12-09 00:51] LABS: CALCIUM 9.1 mg/dL (8.5-10.1); CREATININE 0.8 mg/dL (0.6-1.3); POTASSIUM 3.3 mmol/L (3.5-5.1)
[2017-12-09] MEDS ORDERED: VITAMIN D1000 UNI1 (01:10)
[2017-12-09] MEDS ORDERED: OMEPRAZOLE40 MG (01:11)
[2017-12-09] MEDS ORDERED: ASPIRIN325 (01:12)
[2017-12-09] MEDS ORDERED: HYDROCODONE-AP1 EAC6 PO (03:21)
[2017-12-09 05:27] VITALS: BP 145/78
[2018-02-15] MEDS ORDERED: POTASSIUM20 PO (12:26)
== END 2017-12-09 05:28 | disposition home or self-care (01) ==
LOC: M.ERS 00:28
PROVIDERS: Emergency Medicine
DX: S42.392A Other fracture of shaft of left humerus, initial encounter for closed fracture (principal); F10.129 Alcohol abuse with intoxication, unspecified; F17.210 Nicotine dependence, cigarettes, uncomplicated; Z90.49 Acquired absence of other specified parts of digestive tract; Z88.6 Allergy status to analgesic agent; Z91.041 Radiographic dye allergy status; Z88.8 Allergy status to other drugs, medicaments and biological substances; X58.XXXA Exposure to other specified factors, initial encounter; Y93.89 Activity, other specified; Y92.89 Other specified places as the place of occurrence of the external cause; Y99.8 Other external cause status

== ENCOUNTER 2017-12-12 22:14 | Emergency (ER) | payer OTHER ==
[~2017-12-12] VITALS: Ht 170.2 cm; Wt 81.7 kg
[~2017-12-12 22:14] MED LIST changes: +ASPIRIN325; +HYDROCODONE-AP1 EAC6 PO; +OMEPRAZOLE40 MG; +VITAMIN D1000 UNI1
[2017-12-13 00:30] VITALS: BP 92/52
[2018-02-15] MEDS ORDERED: POTASSIUM20 PO (12:26)
== END 2017-12-13 00:31 | disposition home or self-care (01) ==
LOC: M.ERS 22:14
DX: S42.352A Displaced comminuted fracture of shaft of humerus, left arm, initial encounter for closed fracture (principal); F17.210 Nicotine dependence, cigarettes, uncomplicated; Z88.6 Allergy status to analgesic agent; Z91.041 Radiographic dye allergy status; W17.89XA Other fall from one level to another, initial encounter; Y93.89 Activity, other specified; Y92.89 Other specified places as the place of occurrence of the external cause; Y99.8 Other external cause status

== ENCOUNTER 2018-02-13 15:59 | Emergency (ER) | payer OTHER, MEDICAID ==
[~2018-02-13] VITALS: Ht 170.2 cm; Wt 81.7 kg
[2018-02-13] MEDS ORDERED: ROXICODONE5 M2 PO (16:25)
[2018-02-13 17:01] VITALS: BP 148/97
[2018-02-15] MEDS ORDERED: POTASSIUM20 PO (12:26)
== END 2018-02-13 17:02 | disposition home or self-care (01) ==
LOC: M.ERS 15:59
DX: M25.512 Pain in left shoulder (principal); F17.210 Nicotine dependence, cigarettes, uncomplicated; Z96.659 Presence of unspecified artificial knee joint; Z86.73 Personal history of transient ischemic attack (TIA), and cerebral infarction without residual deficits; Z88.6 Allergy status to analgesic agent; Z91.041 Radiographic dye allergy status

== ENCOUNTER → 2018-02-14 | Outpatient (CLI) | payer OTHER, MEDICAID ==
[~2018-02-14] MED LIST changes: +APAP650 PO; +DIAZEPAM2 MG PO; +ELIQUIS2.5 MG PO; +FLAGYL500 MG PO; +IBUPROFEN 800800 M1 PO; +LIDOPATCH1 EACH TOP; +METAMUCIL1 EAC1 PO; +NEURONTIN 300300 M1 PO; +POTASSIUM20 PO; +ROXICODONE5 M2 PO
[2018-02-14 11:59] LABS: HEMATOCRIT 41.7 % (37.0-47.0); MCH 30.8 pg (26.0-34.0); MCHC 33.5 g/dL (28.0-37.0); MCV 91.9 fL (80.0-100.0); MPV 7.4 fl. (7.2-11.1); RBC 4.54 mil/uL (4.20-5.00); RDW-CV 16.7 % (10.5-14.5); WBC 10.1 thou/uL (4.0-11.0)
[2018-02-14 12:08] LABS: CREATININE 0.9 mg/dL (0.6-1.3)
[2018-02-14 12:13] LABS: ALBUMIN 3.7 g/dL (3.4-5.0); TOTAL BILIRUBIN 0.4 mg/dL (<0.1-1.0); TOTAL PROTEIN 7.9 g/dL (6.4-8.2)
[2018-02-14 12:14] LABS: POTASSIUM 2.8 mmol/L (3.5-5.1)
== END | disposition home or self-care (01) ==
LOC: M.SUR 08:00 → EDSTATUS 08:26 → M.SUR 10:30 → M.LAB 11:31 → M.SUR 11:31
PROVIDERS: Orthopaedic Surgery
DX: S42.352G Displaced comminuted fracture of shaft of humerus, left arm, subsequent encounter for fracture with delayed healing (principal); Z53.8 Procedure and treatment not carried out for other reasons; F32.9 Major depressive disorder, single episode, unspecified; Z91.041 Radiographic dye allergy status; Z88.8 Allergy status to other drugs, medicaments and biological substances; Z79.82 Long term (current) use of aspirin; Z79.899 Other long term (current) drug therapy; Z98.890 Other specified postprocedural states; X58.XXXD Exposure to other specified factors, subsequent encounter

== ENCOUNTER → 2018-02-16 | Outpatient (CLI) | payer OTHER, MEDICAID | LOC: M.LAB 14:38 | DX: E87.6 Hypokalemia (principal) ==

== ENCOUNTER 2018-02-17 07:40 | Observation (INO) | payer OTHER, MEDICAID ==
[~2018-02-17] VITALS: Ht 170.2 cm; Wt 81.6 kg
[~2018-02-17 07:40] MED LIST changes: -APAP650 PO; -DIAZEPAM2 MG PO; -ELIQUIS2.5 MG PO; -FLAGYL500 MG PO; -IBUPROFEN 800800 M1 PO; -LIDOPATCH1 EACH TOP; -METAMUCIL1 EAC1 PO; -NEURONTIN 300300 M1 PO
[2018-02-17 20:00] VITALS: BP 133/91
[2018-02-18 00:03] VITALS: BP 107/73
[2018-02-18 04:09] VITALS: BP 102/70
[2018-02-18] MEDS ORDERED: DIAZEPAM2 MG PO (08:00)
[2018-02-18] MEDS ORDERED: NEURONTIN 300300 M1 PO (08:00)
[2018-02-18 08:22] VITALS: BP 93/58
[2018-02-18] MEDS ORDERED: IBUPROFEN 800800 M1 PO (11:32)
[2018-02-18 11:47] VITALS: BP 93/58
[2018-02-18] MEDS ORDERED: ELIQUIS2.5 MG PO (12:52)
[2018-02-18] MEDS ORDERED: COLACE100 MG PO (12:53)
[2018-02-18] MEDS ORDERED: APAP650 PO (12:58)
[2018-02-18] MEDS ORDERED: METAMUCIL1 EAC1 PO (13:02)
[2018-02-18 13:06] VITALS: BP 93/58
[2018-02-18 14:35] VITALS: BP 93/58
--- NOTE | 2018-03-07 13:25 | OP ---
[address] [address] OPERATIVE REPORT Name: LEAH SAGASTUME Room: [address] [place]#: [id number] Admission: 02/17/18 Attend Phys: Rodríguez Villa Discharge: 02/18/18 Date of : 52 Report #: [id number] THIS REPORT FOR: //name// CC: NO PCP Garry Butt DICTATED BY: Kelby Vicente DO DATE OF SERVICE: 02/17/2018 PREOPERATIVE DIAGNOSIS: Comminuted left midshaft humerus fracture nonunion. POSTOPERATIVE DIAGNOSIS: Comminuted left midshaft humerus fracture nonunion. SURGEON: Garry Soto DO SOLUTIONS SALES CONSULTANT: Kelby Vicente DO SECOND TISSUE SPECIALIST: Michel Joyce DO PROCEDURE: Open reduction and internal fixation, left humeral shaft fracture with a Synthes 4.5 plate. ANESTHESIA: General with local. ESTIMATED BLOOD LOSS: 250 mL. SPECIMENS: None. COMPLICATIONS: None. CONDITION: Stable. ANTIBIOTICS: 2 grams Ancef. Please note wrist, thumb and finger extension were all checked and intact in the PACU after surgery. INDICATIONS: The patient is a 67-year-old female who is well known to our orthopedic clinic. Unfortunately, she suffered a fall earlier this year back in August and had a comminuted middle third humeral shaft fracture of her left arm. She was treated with immobilization and a coaptation splinting as well as functional bracing. Unfortunately, she went on to develop nonunion despite conservative treatment. She presents today for the above-mentioned procedure. Risks, benefits, complications and alternatives to surgery have been reviewed [address] [address] OPERATIVE REPORT Name: LEAH SAGASTUME Room: [address]#: [id number] Admission: 02/17/18 Attend Phys: Rodríguez Villa Discharge: 02/18/18 Date of : 52 Report #: [id number] and discussed with her and she is wishing to proceed. DESCRIPTION OF PROCEDURE: The patient was taken to the operating suite, placed supine on the OR table. She was given the benefit of general anesthetic. She was then prepped and draped in the usual sterile fashion. Prior to procedure, timeout was taken confirming correct site, patient and procedure. The procedure began with an anterior incision over the left arm, dissection was carried down through skin and subcutaneous tissues to the biceps tendon and the distal portion of the deltopectoral interval. This was accessed. The biceps tendon fascia was incised and this was retracted medially. The anterior insertion of the deltoid was released off the humerus as well and this was taken laterally. The brachialis muscle was encountered and this was split midline in line with its fibers and elevated off the bone. This allowed us to encounter fracture. There was a significant amount of callus and fibrous nonunion within the fracture site. Bone edges were freed of all soft tissue and interposed callus. Both ends of the fracture were recannulated within the humeral shaft. All excessive callus was rongeured off and soft tissue debris cleared off the edges of the bone. The remaining callus was morselized and mixed with bone graft. This was placed in the canal and within the fracture site itself. . Using a [id number]-[id number] and a lobster claw reduction forceps, the fracture was then aligned up appropriately and a 4.5 mm 9-hole Synthes plate was placed over the fracture site. This was held to bone with clamps as well. C-arm was brought in for AP and lateral images, showed our reduction alignment was overall in good position as well as position of the plate, so we were able to obtain 4 holes proximally and distally. These were all filled with bicortical screws giving us good bony purchase and compression through the plate as well. A C-arm was again brought in for final images. The repair was very stable. Final images were obtained. The arm was stable with range of motion. Local was injected around the wound. Vancomycin 1 gram powder was placed within the wound. The brachialis muscle fascia was reapproximated with #1 Vicryl, 2-0 Monocryl for subcuticular, running 3-0 Stratafix and Dermabond glue for skin. The patient was placed in a sling. She tolerated the procedure well and was transferred to PACU in good stable condition. All sponge and needle counts were correct x 2. <ELECTRONICALLY SIGNED> By: Garry Soto DO 03/07/18 1325 1347 [id number] Soto DO /andrea
== END 2018-02-18 14:35 | disposition home health service (06) ==
LOC: M.SUR → M.TBA 13:04 → M.SUR 13:07 → M.ORTHSURG 15:33
PROVIDERS: ADMIT Internal Medicine
DX: S42.355A Nondisplaced comminuted fracture of shaft of humerus, left arm, initial encounter for closed fracture (principal); Z87.891 Personal history of nicotine dependence; Z72.89 Other problems related to lifestyle; Z90.89 Acquired absence of other organs; Z90.710 Acquired absence of both cervix and uterus; Z86.73 Personal history of transient ischemic attack (TIA), and cerebral infarction without residual deficits; Z98.890 Other specified postprocedural states

== ENCOUNTER 2018-03-07 16:51 | Inpatient (IN) | payer OTHER, MEDICAID ==
[~2018-03-07] VITALS: Ht 170.2 cm; Wt 76.7 kg
[~2018-03-07 16:51] MED LIST changes: +APAP650 PO; +DIAZEPAM2 MG PO; +ELIQUIS2.5 MG PO; +IBUPROFEN 800800 M1 PO; +METAMUCIL1 EAC1 PO; +NEURONTIN 300300 M1 PO
[2018-03-07 16:52] VITALS: BP 131/77
[2018-03-07 17:13] LABS: ABSOLUTE BASOPHILS 0.1 thou/uL (0.0-0.2); ABSOLUTE LYMPHOCYTES 1.5 thou/uL (0.8-5.3); ABSOLUTE MONOCYTES 1.5 thou/uL (0.0-1.2); ABSOLUTE NEUTROPHILS 9.9 thou/uL (1.6-8.1); BASOPHILS 0.8 %; EOSINOPHILS 0.2 %; HEMATOCRIT 41.9 % (37.0-47.0); LYMPHOCYTES 11.3 %; MCH 29.4 pg (26.0-34.0); MCHC 33.4 g/dL (28.0-37.0); MONOCYTES 11.5 %; NUCLEATED RBCS 0 /100WBC; PLATELET COUNT* 500 thou/uL (150-400); POLYS 76.2 %; RBC 4.77 mil/uL (4.20-5.00); RDW-CV 17.4 % (10.5-14.5)
[2018-03-07 17:18] LABS: ANION GAP 8 mmol/L (7-16); BUN 7 mg/dL (7-18); CALCIUM 10.7 mg/dL (8.5-10.1); CHLORIDE 92 mmol/L (98-107); CO2 36 mmol/L (21-32); CREATININE 1.5 mg/dL (0.6-1.3); GLUCOSE 141 mg/dL (70-99); SODIUM 136 mmol/L (136-145)
[2018-03-07 17:24] LABS: ALBUMIN 3.5 g/dL (3.4-5.0); ALKALINE PHOSPHATASE 174 U/L (46-116); LIPASE 93 U/L (73-393); SGOT 15 U/L (15-37); SGPT 16 U/L (30-65); TOTAL BILIRUBIN 0.6 mg/dL (<0.1-1.0); TOTAL PROTEIN 8.4 g/dL (6.4-8.2); TROPONIN-I LEVEL <0.06 ng/mL (<0.06)
[2018-03-07 17:28] LABS: POTASSIUM 2.4 mmol/L (3.5-5.1)
[2018-03-07 20:45] VITALS: BP 128/86
[2018-03-07 21:00] VITALS: BP 135/77
--- NOTE | 2018-03-07 23:58 | NUR ---
PT IS ADMITTED ON THE FLOOR FROM ER AT 2100. SHE IS ALERT AWAKE ORIENTED X4. ACOMPANIED BY ER NURSE ON A STRETCHER. NEW IV LINE WAS PLACED IN THE PT ROOM AT BEDSIDE BY ER NURSE. IV FLUID NS 40 MEQ K RUNNING AT 100 CC PER HOUR ORDERED. PT VITAL SIGNS ARE WITHIN NORMAL LIMIT. SHE COMPLAINS OF PAIN LEVEL OF 9 IN THE ABDOMEN. MORPHINE GIVEN ORDERED. ONE HOUR AFTER ADMISTRATION PT STATES THAT PAIN HAS DECREASED TO A LEVEL OF 5. ADMISSION ASSESSMENT AND HISTORY PERFORMED IN THE ROOM. PT PARTNER IS AT BEDSIDE AND PARTICIPATED. SCD S OFFERED. BED ALARM IS ON. CURRENTLY SHE IS NPO. WILL CONTINU TO MONITOR
[2018-03-08] VITALS: BP 130/84
[2018-03-08 04:00] VITALS: BP 128/72
[2018-03-08 07:34] LABS: ABSOLUTE BASOPHILS 0.1 thou/uL (0.0-0.2); ABSOLUTE LYMPHOCYTES 1.5 thou/uL (0.8-5.3); ABSOLUTE MONOCYTES 0.4 thou/uL (0.0-1.2); ABSOLUTE NEUTROPHILS 11.3 thou/uL (1.6-8.1); BASOPHILS 0.4 %; EOSINOPHILS 0.1 %; HEMATOCRIT 38.6 % (37.0-47.0); HEMOGLOBIN 12.7 gm/dL (12.0-15.0); LYMPHOCYTES 11.1 %; MCH 29.7 pg (26.0-34.0); MCHC 32.8 g/dL (28.0-37.0); MCV 90.6 fL (80.0-100.0); MONOCYTES 2.7 %; MPV 7.8 fl. (7.2-11.1); NUCLEATED RBCS 0 /100WBC; POLYS 85.7 %; RBC 4.26 mil/uL (4.20-5.00); RDW-CV 17.4 % (10.5-14.5); WBC 13.2 thou/uL (4.0-11.0)
[2018-03-08 07:39] LABS: PLATELET COUNT* 400 thou/uL (150-400)
[2018-03-08 07:44] LABS: CALCIUM 9.4 mg/dL (8.5-10.1); CREATININE 1.4 mg/dL (0.6-1.3)
[2018-03-08 07:48] LABS: POTASSIUM 3.8 mmol/L (3.5-5.1)
[2018-03-08 08:00] VITALS: BP 142/81
[2018-03-08 08:57] LABS: ANISOCYTOSIS 1+; PLATELET ESTIMATE ADEQUATE; POIKILOCYTOSIS 1+
--- NOTE | 2018-03-08 09:25 | EKG ---
[place] [address] ELECTROCARDIOGRAM REPORT Name: LEAH SAGASTUME Room: [address] [facility]#: [id number] Admission: 03/07/18 Attend Phys: Wayne Connelly MD Discharge: Date of : 52 Report #: [id number] THIS REPORT FOR: //name// [facility] ED Test Date: 2018-03-07 Test Time: 17:03:22 Pat Name: LEAH SAGASTUME Department: Room: Gender: F Asset Protection Agent: Paty CARLSON : 1950 Requested By: Umesh Castillo Order Number: [id number] MD: Guzman Fernandez Measurements Intervals [place] Rate: 103 P: 42 UT: 172 QRS: 19 QRSD: 99 T: -37 QT: 387 QTc: 507 Interpretive Statements Sinus tachycardia Atrial premature complex Inferior infarct, age indeterminate Prolonged QT interval Compared to ECG 09/28/2017 02:09:55 Atrial premature complex(es) now present Prolonged QT interval now present Sinus rhythm no longer present Left-axis deviation no longer present Myocardial infarct finding still present Electronically Signed On 03-08-2018 9:24:59 CDT by Guzman Fernandez [email or web address] <ELECTRONICALLY SIGNED> By: Guzman Fernandez MD, FAC 03/08/18 0924 1703 1703 Guzman Fernandez MD, FAC /EPI
--- NOTE | 2018-03-08 11:27 | NUR ---
ASSUMED CARE OF PATIENT THIS AM AT 0730. PATIENT IS ALERT AND ORIENTED X 4. SHE C/O ABD AND BACK PAIN ALONG WITH NAUSEA THIS AM. IV FLUIDS INFUSING PER ORDER. PATIENT STARTED ON A CLEAR LIQ DIET. MEDICATED FOR PAIN X 1 WITH PARTIAL RELIEF VERBALIZED. TELE SHOWS NSR. WILL CONTINUE TO MONITOR PAIN MANAGEMENT.
[2018-03-08 12:23] VITALS: BP 119/57
--- NOTE | 2018-03-08 15:46 | NUR ---
Pt is A&O. Resides at home with her partner. Independent with ADLs, states that her partner does most of the cooking and all of the driving. Pt is independent with iADLs. Pt has a walker, cane and wc at home. Pt stated that she uses the wc for longer distances. Pt states that she recently had shoulder surgery, performed by Dr Soto, she has a f/u appt with him in a few weeks, at which time she will inquire about HH services. Pt has a hx of HH and SNF. Pt's goal is to return home at mt. Following.
[2018-03-08 16:23] VITALS: BP 128/65
[2018-03-08 20:00] VITALS: BP 134/84
[2018-03-09] VITALS: BP 134/82
--- NOTE | 2018-03-09 03:21 | NUR ---
PT ALERT ORIENTED. INITALLY IVP MORPHINE EVERY TWO HOURS. ORDER CHANGED TO EVERY THREE HOURS. OXCOCODONE Q 6 HRS. LIDOCAINE PATCH APPLIED TO LOWER R BACK. PT STATES THE BEST PAIN GETS IS 5/10. TELEMETRY SHOWS SR. NS WITH 40MEQKCL INFUSING AT 100MLS/HR. ON RA. PT CALLS OUT FOR ASSIST TO BR. WILL CONTINUE TO MONITOR.
[2018-03-09 03:51] VITALS: BP 143/66
[2018-03-09 04:29] LABS: HEMATOCRIT 34.2 % (37.0-47.0); HEMOGLOBIN 11.2 gm/dL (12.0-15.0); MCH 29.8 pg (26.0-34.0); MCHC 32.7 g/dL (28.0-37.0); MCV 91.2 fL (80.0-100.0); MPV 7.9 fl. (7.2-11.1); RBC 3.75 mil/uL (4.20-5.00); RDW-CV 16.6 % (10.5-14.5); WBC 9.8 thou/uL (4.0-11.0)
[2018-03-09 05:19] LABS: CALCIUM 8.4 mg/dL (8.5-10.1); CREATININE 1.1 mg/dL (0.6-1.3); MAGNESIUM 1.4 mg/dL (1.8-2.4); POTASSIUM 4.5 mmol/L (3.5-5.1)
[2018-03-09 08:00] VITALS: BP 143/78
--- NOTE | 2018-03-09 11:47 | NUR ---
Spoke with , anticipate dc tomorrow.
[2018-03-09 16:13] VITALS: BP 150/95
--- NOTE | 2018-03-09 17:31 | NUR ---
ASSUMED CARE OF PT AROUND 0730 THIS AM. REFER TO ASSESSMENT. PT PROGRESSING TOWARDS GOALS THIS SHIFT. TOLERATED ADVANCED DIET. PAIN MANAGED WITH SCHEDULED PAIN MEDICATION. MED/SURG STATUS TODAY. ANTICIPATE DC HOME TOMORROW. NO OTHER CONCERNS AT THIS TIME. CLWR. WCTM.
[2018-03-09] MEDS ORDERED: CIPRO500 MG PO (19:34)
[2018-03-09] MEDS ORDERED: LIDOPATCH1 EACH TOP (19:34)
[2018-03-09] MEDS ORDERED: FLAGYL500 MG PO (19:34)
[2018-03-09 20:00] VITALS: BP 167/85
[2018-03-10] VITALS: BP 157/100
--- NOTE | 2018-03-10 04:04 | NUR ---
ASSUMED PT CARE AT 1915 REPORT RECEIVED FROM NURSE PT IS ALERT AWAKE ORINETED X4. MED SURG AT THIS TIME. COMLAINS OF AIN IN LEFT UPPER ARM. SCHEDULED PAIN MED ADMINISTERED ALONG WITH IV ANTIBIOTICSA ND OTHER MEED. PT IS ASYMOTOMATIC. SIENA IS A CONDIDATE FOR DISCHARGEFKR TODAY. SHE IS CURRRENTLY ON SOFT FIBER DIET. RECEIVED PAIN ,ED SCHEDULED AND DOS NOT REALLY COMPLIAN OF PAIN. WILL CONTINUE TO MONITOR.
[2018-03-10 04:28] LABS: HEMATOCRIT 33.8 % (37.0-47.0); MCH 29.9 pg (26.0-34.0); MCHC 32.7 g/dL (28.0-37.0); MCV 91.5 fL (80.0-100.0); MPV 7.7 fl. (7.2-11.1); RBC 3.69 mil/uL (4.20-5.00); RDW-CV 16.9 % (10.5-14.5); WBC 7.7 thou/uL (4.0-11.0)
[2018-03-10 04:41] LABS: CALCIUM 8.7 mg/dL (8.5-10.1); CREATININE 0.8 mg/dL (0.6-1.3); POTASSIUM 5.3 mmol/L (3.5-5.1)
--- NOTE | 2018-03-10 07:58 | NUR ---
AT 0600 IV FOUND ON THE FLOOR, BLOOD DROPS ON THE FLOOR. PT STAES THAT SHE DID NOT REALIZE WHEN HER IV WAS OUT. SHE REFUSES TO HAVE ANOTHER IV INSERTED BECASUE SHE IS READY TO GO HOME TODAY. ROOM WAS CLEANED. IV SITE SECURED WITH COTTON BALL AND TAPE.
[2018-03-10 09:00] VITALS: BP 150/91
[2018-03-10 10:32] VITALS: BP 150/91
--- NOTE | 2018-03-10 10:53 | NUR ---
PATIENT IV PREVIOUSLY DC'D ON METAL FABRICATING SHOP HELPER. SCHED OXY IR GIVEN FOR BACK/ABD PAIN. PATIENT UP AD SHEYLA AROUND ROOM. PATIENT DISCHARGED TO HOME WITH SO AT THIS TIME. VERBALIZES UNDERSTANDING OF PAPERWORK AND SCRIPT. PATIENT TAKEN OUT VIA WHEELCHAIR WITH ALL BELONGINGS.
== END 2018-03-10 10:52 | disposition home or self-care (01) | DRG 371 ==
LOC: M.ERS 16:51 → M.TBA-ER 19:49 → M.2W 19:49
PROVIDERS: Emergency Medicine Emergency Medical Services; Internal Medicine; ADMIT Internal Medicine
DX: A04.9 Bacterial intestinal infection, unspecified (principal); R65.11 Systemic inflammatory response syndrome (SIRS) of non-infectious origin with acute organ dysfunction; N17.9 Acute kidney failure, unspecified; E87.6 Hypokalemia; M54.9 Dorsalgia, unspecified; G89.29 Other chronic pain; Z90.710 Acquired absence of both cervix and uterus; Z90.49 Acquired absence of other specified parts of digestive tract; Z86.73 Personal history of transient ischemic attack (TIA), and cerebral infarction without residual deficits; Z88.8 Allergy status to other drugs, medicaments and biological substances; Z91.041 Radiographic dye allergy status; Z87.891 Personal history of nicotine dependence; Z79.82 Long term (current) use of aspirin; Z79.899 Other long term (current) drug therapy

== ENCOUNTER 2018-04-11 01:44 | Emergency (ER) | payer OTHER, MEDICAID ==
[~2018-04-11] VITALS: Ht 165.1 cm; Wt 96.7 kg
[~2018-04-11 01:44] MED LIST changes: +FLAGYL500 MG PO; +LIDOPATCH1 EACH TOP
[2018-04-11 02:22] LABS: HEMATOCRIT 36.3 % (37.0-47.0); HEMOGLOBIN 12.1 gm/dL (12.0-15.0); MCH 28.4 pg (26.0-34.0); MCHC 33.3 g/dL (28.0-37.0); MCV 85.3 fL (80.0-100.0); MPV 6.5 fl. (7.2-11.1); RBC 4.26 mil/uL (4.20-5.00); RDW-CV 17.3 % (10.5-14.5); WBC 8.8 thou/uL (4.0-11.0)
[2018-04-11 02:23] LABS: URINE BILIRUBIN NEGATIVE (Negative); URINE BLOOD NEGATIVE (Negative); URINE CLARITY CLEAR; URINE COLOR YELLOW; URINE GLUCOSE-RANDOM NEGATIVE (Negative); URINE KETONES NEGATIVE (Negative); URINE LEUKOCYTES NEGATIVE (Negative); URINE NITRITE NEGATIVE (Negative); URINE PROTEIN NEGATIVE (Negative); URINE SPECIFIC GRAVITY <= 1.005 (1.005-1.030); URINE UROBILINOGEN 0.2 E.U./dl (0.2-1.0)
[2018-04-11 02:40] LABS: AMP/METHAMP Negative (Negative); BARBITURATES Negative (Negative); BENZODIAZEPINES Negative (Negative); COCAINE Negative (Negative); METHADONE Negative (Negative); OPIATES POSITIVE (Negative); PCP Negative (Negative); THC Negative (Negative)
[2018-04-11 02:42] LABS: ALCOHOL 169 mg/dL (<10); SALICYLATE 3.1 mg/dL (2.8-20.0)
[2018-04-11 02:43] LABS: CALCIUM 8.4 mg/dL (8.5-10.1); CREATININE 0.8 mg/dL (0.6-1.3); POTASSIUM 2.9 mmol/L (3.5-5.1); TOTAL BILIRUBIN 0.3 mg/dL (<0.1-1.0); TOTAL PROTEIN 7.6 g/dL (6.4-8.2)
[2018-04-11 02:44] LABS: ACETAMINOPHEN < 2 ug/mL (10-30)
[2018-04-11] MEDS ORDERED: NORCO 5-325 TA1 EACH PO (05:46)
[2018-04-11 07:15] VITALS: BP 122/86
== END 2018-04-11 07:15 | disposition home or self-care (01) ==
LOC: M.ERS 01:44
PROVIDERS: Personal Emergency Response Attendant
DX: F10.129 Alcohol abuse with intoxication, unspecified (principal); Y90.6 Blood alcohol level of 120-199 mg/100 ml; F32.9 Major depressive disorder, single episode, unspecified; G89.4 Chronic pain syndrome; F17.210 Nicotine dependence, cigarettes, uncomplicated; Z88.6 Allergy status to analgesic agent; Z91.041 Radiographic dye allergy status; Z88.8 Allergy status to other drugs, medicaments and biological substances; Z90.49 Acquired absence of other specified parts of digestive tract; Z87.01 Personal history of pneumonia (recurrent)

== ENCOUNTER 2018-05-07 13:28 | Emergency (ER) | payer OTHER, MEDICAID ==
[~2018-05-07] VITALS: Ht 170.2 cm; Wt 79.4 kg
[2018-05-07 14:15] LABS: ABSOLUTE LYMPHOCYTES 1.1 thou/uL (0.8-5.3); ABSOLUTE MONOCYTES 0.9 thou/uL (0.0-1.2); ABSOLUTE NEUTROPHILS 4.6 thou/uL (1.6-8.1); BASOPHILS 0.4 %; EOSINOPHILS 0.6 %; HEMATOCRIT 30.4 % (37.0-47.0); LYMPHOCYTES 17.1 %; MCH 29.2 pg (26.0-34.0); MCHC 32.8 g/dL (28.0-37.0); MCV 89.3 fL (80.0-100.0); MONOCYTES 13.1 %; MPV 6.8 fl. (7.2-11.1); NUCLEATED RBCS 0 /100WBC; PLATELET COUNT* 167 thou/uL (150-400); POLYS 68.8 %; RBC 3.41 mil/uL (4.20-5.00); RDW-CV 24.9 % (10.5-14.5); WBC 6.7 thou/uL (4.0-11.0)
[2018-05-07 14:28] LABS: CALCIUM 8.2 mg/dL (8.5-10.1)
[2018-05-07 14:29] LABS: POTASSIUM 2.9 mmol/L (3.5-5.1)
[2018-05-07 14:33] LABS: ALBUMIN 2.8 g/dL (3.4-5.0); TOTAL PROTEIN 7.4 g/dL (6.4-8.2)
[2018-05-07 14:46] LABS: URINE BILIRUBIN NEGATIVE (Negative); URINE BLOOD NEGATIVE (Negative); URINE CLARITY CLEAR; URINE COLOR YELLOW; URINE GLUCOSE-RANDOM NEGATIVE (Negative); URINE KETONES NEGATIVE (Negative); URINE LEUKOCYTES-REFLEX NEGATIVE (Negative); URINE NITRITE-REFLEX NEGATIVE (Negative); URINE PROTEIN NEGATIVE (Negative)
[2018-05-07 14:58] LABS: ANISOCYTOSIS 2+; PLATELET ESTIMATE ADEQUATE
[2018-05-07 14:58] LABS: AMP/METHAMP Negative (Negative); BENZODIAZEPINES Negative (Negative); COCAINE Negative (Negative); METHADONE Negative (Negative); OPIATES Negative (Negative); PCP Negative (Negative); THC Negative (Negative)
[2018-05-07 15:17] LABS: BARBITURATES Negative (Negative)
[2018-05-07] MEDS ORDERED: KEFLEX500 M1 PO (15:36)
[2018-05-07 17:19] VITALS: BP 127/77
== END 2018-05-07 17:20 | disposition home or self-care (01) ==
LOC: M.ERS 13:28
PROVIDERS: Nurse Practitioner Family
DX: L03.114 Cellulitis of left upper limb (principal); G89.29 Other chronic pain; M54.5 Low back pain; M25.552 Pain in left hip; E87.6 Hypokalemia; F17.210 Nicotine dependence, cigarettes, uncomplicated; Z90.710 Acquired absence of both cervix and uterus; N80.9 Endometriosis, unspecified; Z90.49 Acquired absence of other specified parts of digestive tract; Z87.01 Personal history of pneumonia (recurrent); Z79.899 Other long term (current) drug therapy; Z91.041 Radiographic dye allergy status; Z88.6 Allergy status to analgesic agent; Z88.8 Allergy status to other drugs, medicaments and biological substances; W01.0XXA Fall on same level from slipping, tripping and stumbling without subsequent striking against object, initial encounter; Y93.89 Activity, other specified; Y92.89 Other specified places as the place of occurrence of the external cause; Y99.8 Other external cause status